=== PATIENT | female | born 1990 | race Caucasian/White ===

== ENCOUNTER → 2023-11-28 | Outpatient (CLI) | payer OTHER | LOC: M WUC 14:41 | PROVIDERS: ATTEND Nurse Practitioner Adult Health | DX: M25.561 Pain in right knee (principal); S83.011A Lateral subluxation of right patella, initial encounter; Y92.9 Unspecified place or not applicable; Y93.9 Activity, unspecified ==

== ENCOUNTER → 2024-01-02 | Outpatient (CLI) | payer OTHER | LOC: M PLAIMG 06:52 | PROVIDERS: ATTEND Nurse Practitioner Adult Health | DX: M25.561 Pain in right knee (principal) ==

== ENCOUNTER 2024-06-21 13:00 | Day surgery (SDC) | payer OTHER ==
[~2024-06-21] VITALS: Ht 167.6 cm; Wt 93.4 kg
[~2024-06-21 13:00] MED LIST: LO LTAB PO; NS 250 ML IV ONE; SERT50TA29 PO
[2024-06-21] MEDS ORDERED: fentaNYL 100 MCG/2 ML INJECTION As Ordered ONE (15:33)
[2024-06-21 16:04] VITALS: BP 131/72; O2SAT 97
== END 2024-06-21 16:06 | disposition home or self-care (01) ==
LOC: M OPP 13:00
PROVIDERS: ATTEND Internal Medicine Gastroenterology
DX: Z12.11 Encounter for screening for malignant neoplasm of colon (principal); Z80.0 Family history of malignant neoplasm of digestive organs; F41.9 Anxiety disorder, unspecified; Z79.899 Other long term (current) drug therapy; Z90.89 Acquired absence of other organs; Z91.048 Other nonmedicinal substance allergy status
CPT/HCPCS: 45378; J3010

== ENCOUNTER → 2024-11-10 | Outpatient (CLI) | payer OTHER ==
[~2024-11-10] MED LIST changes: -NS 250 ML IV ONE
== END ==
LOC: M WUC 14:21
PROVIDERS: ATTEND Nurse Practitioner Adult Health
DX: S46.812A Strain of other muscles, fascia and tendons at shoulder and upper arm level, left arm, initial encounter (principal); M75.32 Calcific tendinitis of left shoulder; X58.XXXA Exposure to other specified factors, initial encounter; Y92.9 Unspecified place or not applicable; Y93.9 Activity, unspecified; Y99.9 Unspecified external cause status

== ENCOUNTER 2025-08-17 07:09 | Day surgery (SDC) | payer OTHER ==
[~2025-08-17] VITALS: Ht 167.6 cm; Wt 83.0 kg
[~2025-08-17 07:09] MED LIST changes: +D 50CAP2 PO; +LR 1,000 ML IV SCH; +ONDANSETRON 4MG/2ML VIAL IV PRN
[2025-08-17] MEDS ORDERED: MIDAZOLAM INJ 2 MG/2 ML VIAL As Ordered ONE (07:51)
[2025-08-17] MEDS ORDERED: LIDOCAINE 2% 100 MG/5 ML SDV (FOR ANES.) As Ordered ONE (07:51)
[2025-08-17] MEDS ORDERED: PHENYLephrine 500MCG 5ML (100MCG/ML) SYRINGE As Ordered ONE (08:05)
[2025-08-17] MEDS ORDERED: SCOPOLAMINE 1MG TRANSDERMAL PATCH TOP ONE (08:25)
[2025-08-17] MEDS ORDERED: LR 1,000 ML IV SCH (08:25)
[2025-08-17] MEDS: LIDOCAINE 1% MDV 20 ML VIAL As Ordered ONE (08:43)
[2025-08-17] MEDS: ceFAZolin SOD 2 GM IV ONCE IV ONE (09:02)
[2025-08-17 09:50] VITALS: BP 113/64; O2SAT 96
== END 2025-08-17 11:18 | disposition home or self-care (01) ==
LOC: M SDC 07:09
PROVIDERS: ATTEND Podiatrist Foot & Ankle Surgery
DX: M72.2 Plantar fascial fibromatosis (principal); F41.9 Anxiety disorder, unspecified; Z79.899 Other long term (current) drug therapy; Z91.048 Other nonmedicinal substance allergy status; Z98.51 Tubal ligation status; Z90.89 Acquired absence of other organs
CPT/HCPCS: 29893; J0665; J0688; J2250; J3010